=== PATIENT | male | born 1945 | race Caucasian/White ===

== ENCOUNTER 2017-05-19 09:27 | Observation (INO) | payer OTHER ==
[~2017-05-19] VITALS: Ht 152.4 cm; Wt 49.8 kg
[~2017-05-19 09:27] MED LIST: AMIO200T2 PO; ASPI-1197 PO; ISOS30TA11 PO; METO50TA18 PO; ROSU40TA28 PO; TRAZ-144 PO
[2017-05-19] MEDS ORDERED: ASPIRIN 325 MG TABLET ONE (09:47)
[2017-05-19] MEDS ORDERED: ONDANSETRON HCL 4 MG/2 ML VIAL ONE (09:47)
[2017-05-19] MEDS ORDERED: MORPHINE SULFATE 2 MG/ML 1ML SYG ONE (09:48)
[2017-05-19] MEDS ORDERED: NITROGLYCERIN 1GM/1 INCH PACKET TD ONE (09:48)
[2017-05-19 09:55] LABS: BASOPHILS % (AUTO) 1.2 % (0.0-5.0); EOSINOPHILS % (AUTO) 5.2 % (0.0-8.0); HEMATOCRIT 43.9 % (42-54); LYMPHOCYTES % (AUTO) 22.1 % (21.0-51.0); MEAN CORPUSCULAR HEMOGLOBIN 31.4 pg (27.0-33.0); MEAN CORPUSCULAR HGB CONC 34.6 g/dL (32.0-36.0); MEAN CORPUSCULAR VOLUME 90.6 fL (79-99); MONOCYTES % (AUTO) 10.6 % (3.0-13.0); NEUTROPHILS % (AUTO) 60.9 % (40.0-77.0); NUCLEATED RED BLOOD CELLS 0.1 % (0.0-0.19); PLATELET COUNT (AUTO) 176 K/uL (130-400); RED BLOOD CELL COUNT(AUTO) 4.85 MIL/uL (4.50-6.20); RED CELL DISTRIBUTION WIDTH 15.8 % (11.0-15.5); WHITE BLOOD COUNT (AUTO) 6.8 K/uL (4.8-10.8)
[2017-05-19 10:07] LABS: CARBON DIOXIDE 29 mmol/L (21-32); CHLORIDE 104 mmol/L (101-111); CREATININE 1.2 mg/dL (0.5-1.5); GLOMERULAR FILTR. RATE CALC 63 mL/min (>60); GLUCOSE,RANDOM 98 mg/dL (70-105); POTASSIUM 4.3 mmol/L (3.5-5.1); SODIUM SERUM 138 mmol/L (136-145); UREA NITROGEN, BLOOD 13 mg/dL (7-18)
[2017-05-19 10:23] LABS: ALANINE AMINOTRANSFERASE 68 U/L (12-78); ASPARTATE AMINOTRANSFERASE 33 U/L (10-37); BILIRUBIN,TOTAL 0.6 mg/dL (0.2-1.0); CREATINE KINASE MB < 0.5 ng/mL (0.5-3.6); CREATINE KINASE, TOTAL 69 U/L (21-232)
[2017-05-19] MEDS ORDERED: LIDOCAINE HCL-MPF 1% 2ML VIAL IVP PRN (12:00)
[2017-05-19] MEDS ORDERED: POTASSIUM CHLORIDE 20 MEQ ERTAB PO PRN (12:00)
[2017-05-19] MEDS: NITROGLYCERIN 1GM/1 INCH PACKET TD SCH ×3 (12:00→19:56)
[2017-05-19] MEDS ORDERED: MORPHINE SULFATE 4 MG/1ML SYG IV PRN (12:00)
[2017-05-19] MEDS ORDERED: ACETAMINOPHEN 325 MG TAB PO PRN ×2 (12:00)
[2017-05-19] MEDS ORDERED: POTASSIUM CHLORIDE 10% ELIXIR 20 MEQ/15 ML UDCUP PO PRN (12:00)
[2017-05-19] MEDS ORDERED: NITROGLYCERIN 0.4 MG SL TAB SL PRN (12:00)
[2017-05-19] MEDS ORDERED: POTASSIUM CHLORIDE 20MEQ/100ML 100 ML IV PRN (12:00)
[2017-05-19] MEDS ORDERED: MAG HYDROX/AL HYDROX/SIMETH ES 30 ML SUSP UDCUP PO PRN (12:00)
[2017-05-19] MEDS ORDERED: MORPHINE SULFATE 2 MG/ML 1ML SYG IV PRN (12:00)
[2017-05-19] MEDS ORDERED: ONDANSETRON HCL 4 MG/2 ML VIAL IV PRN (12:00)
[2017-05-19] MEDS ORDERED: LACTULOSE 20 GM/30 ML UDCUP PO PRN (12:00)
[2017-05-19] MEDS ORDERED: GUAIFENESIN-DM 200/20 MG 10 ML PO PRN (12:00)
[2017-05-19] MEDS ORDERED: HYDRALAZINE HCL 20 MG/ML VIAL IV PRN (12:00)
[2017-05-19] MEDS ORDERED: ACETAMINOPHEN-CODEINE 300/30MG TAB PO PRN ×2 (12:00)
[2017-05-19 12:53] VITALS: BP 112/55
[2017-05-19] MEDS ORDERED: PROP50TA3 PO ×2 (14:36)
[2017-05-19 16:10] LABS: CREATINE KINASE MB < 0.5 ng/mL (0.5-3.6); CREATINE KINASE, TOTAL 58 U/L (21-232); MYOGLOBIN 33 ng/mL (10-92); TROPONIN I < 0.04 ng/mL (0.00-0.06)
[2017-05-19 16:21] VITALS: BP 101/61
[2017-05-19 19:31] VITALS: BP 108/65
[2017-05-19 20:30] VITALS: BP 110/63
[2017-05-19] MEDS: METOPROLOL TARTRATE 25 MG TAB PO SCH (20:35)
[2017-05-19 23:17] VITALS: BP 116/65
[2017-05-19 23:41] LABS: CREATINE KINASE MB < 0.5 ng/mL (0.5-3.6); CREATINE KINASE, TOTAL 54 U/L (21-232); MYOGLOBIN 33 ng/mL (10-92); THYROID STIMULATING HORMONE 24.53 uIU/mL (0.36-3.74); TROPONIN I < 0.04 ng/mL (0.00-0.06)
[2017-05-20] MEDS: NITROGLYCERIN 1GM/1 INCH PACKET TD SCH ×2 (03:41→12:02)
[2017-05-20 04:05] VITALS: BP 100/57
[2017-05-20] MEDS ORDERED: PROPYLTHIOURACIL 50 MG TABLET PO SCH ×2 (07:30→21:00)
[2017-05-20 08:04] VITALS: BP 102/65
[2017-05-20] MEDS: METOPROLOL TARTRATE 25 MG TAB PO SCH (08:48)
[2017-05-20] MEDS ORDERED: ENOXAPARIN SODIUM 40 MG/0.4 ML SYRINGE SQ SCH (09:00)
[2017-05-20] MEDS ORDERED: FAMOTIDINE/PF 20 MG/2 ML VIAL IV SCH (09:00)
[2017-05-20] MEDS ORDERED: ASPIRIN 325 MG TABLET PO SCH (09:00)
[2017-05-20 11:14] VITALS: BP 107/67
[2017-05-20 16:13] VITALS: BP 107/67
[2017-05-20 17:15] VITALS: BP 117/63
[2017-05-20] MEDS ORDERED: ISOSORBIDE DINITRATE 10 MG TABLET PO SCH (21:00)
[2017-05-20] MEDS ORDERED: ASPIRIN 81MG TAB.CHEW PO SCH (21:00)
[2017-05-20] MEDS ORDERED: ATORVASTATIN CALCIUM 40 MG TABLET PO SCH (21:00)
[2017-05-20] MEDS ORDERED: AMIODARONE HCL 200 MG TABLET PO SCH (21:00)
[2017-05-20] MEDS ORDERED: TRAZODONE HCL 50 MG TAB PO SCH (21:00)
== END 2017-05-20 18:25 | disposition home or self-care (01) ==
LOC: EDH 09:27 → EDHIP 11:53 → 2AH 12:22
PROVIDERS: ADMIT Internal Medicine; ATTEND Internal Medicine
DX: R07.89 Other chest pain (principal); I25.10 Atherosclerotic heart disease of native coronary artery without angina pectoris; I47.2 Ventricular tachycardia; I42.9 Cardiomyopathy, unspecified; I10 Essential (primary) hypertension; E05.90 Thyrotoxicosis, unspecified without thyrotoxic crisis or storm; E78.5 Hyperlipidemia, unspecified; I25.2 Old myocardial infarction; Z82.49 Family history of ischemic heart disease and other diseases of the circulatory system; Z95.1 Presence of aortocoronary bypass graft; Z95.5 Presence of coronary angioplasty implant and graft; Z95.810 Presence of automatic (implantable) cardiac defibrillator
CPT/HCPCS: 36415; 71045; 78452; 80053; 82550 ×3; 82553 ×3; 83874 ×2; 84443; 84484 ×3; 85025; 93005 ×2; 93017; 93306; 96372; 99285; A9500 ×2; G0378 ×31; J1650; J2405; J3490; 96374

== ENCOUNTER 2017-09-13 02:00 | Emergency (ER) | payer OTHER ==
[~2017-09-13 02:00] MED LIST changes: -AMIO200T2 PO; +AMIO200T5 PO; +PROP50TA3 PO; +ROSU40TA20 PO; -ROSU40TA28 PO; -TRAZ-144 PO; +TRAZ-185 PO
[2017-09-13 02:54] LABS: BASOPHILS % (AUTO) 0.7 % (0.0-5.0); EOSINOPHILS % (AUTO) 3.2 % (0.0-8.0); HEMATOCRIT 40.6 % (42-54); LYMPHOCYTES % (AUTO) 12.4 % (21.0-51.0); MEAN CORPUSCULAR HEMOGLOBIN 32.6 pg (27.0-33.0); MEAN CORPUSCULAR HGB CONC 35.5 g/dL (32.0-36.0); MEAN CORPUSCULAR VOLUME 91.8 fL (79-99); NEUTROPHILS % (AUTO) 68.7 % (40.0-77.0); PLATELET COUNT (AUTO) 152 K/uL (130-400); RED BLOOD CELL COUNT(AUTO) 4.42 MIL/uL (4.50-6.20); RED CELL DISTRIBUTION WIDTH 12.2 % (11.0-15.5); WHITE BLOOD COUNT (AUTO) 8.5 K/uL (4.8-10.8)
[2017-09-13] MEDS ORDERED: ASPIRIN 325 MG TABLET ONE (03:15)
[2017-09-13] MEDS ORDERED: ONDANSETRON HCL MDV 20ML 2 MG/ML VIAL ONE (03:16)
[2017-09-13] MEDS ORDERED: MORPHINE SULFATE 8 MG/ML VIAL ONE (03:17)
[2017-09-13 03:24] LABS: CARBON DIOXIDE 26 mmol/L (21-32); CHLORIDE 107 mmol/L (101-111); GLOMERULAR FILTR. RATE CALC 78 mL/min (>60); GLUCOSE,RANDOM 119 mg/dL (70-105); POTASSIUM 4.1 mmol/L (3.5-5.1); SODIUM SERUM 141 mmol/L (136-145); UREA NITROGEN, BLOOD 16 mg/dL (7-18)
[2017-09-13 03:31] LABS: INR 0.92 (0.85-1.15); PARTIAL THROMBOPLASTIN TIME 28.1 SEC (26.3-35.5); PROTHROMBIN TIME 9.7 SEC (9.6-11.6)
[2017-09-13 03:38] LABS: ALANINE AMINOTRANSFERASE 33 U/L (12-78); ALBUMIN 3.4 g/dL (3.5-5.0); ASPARTATE AMINOTRANSFERASE 24 U/L (10-37); BILIRUBIN,TOTAL 0.5 mg/dL (0.2-1.0); CREATINE KINASE MB < 0.5 ng/mL (0.5-3.6); CREATINE KINASE, TOTAL 67 U/L (21-232); MYOGLOBIN 21 ng/mL (10-92); TOTAL PROTEIN, SERUM 6.4 g/dL (6.0-8.3)
[2017-09-13] MEDS ORDERED: IOPAMIDOL-370 75 ML VIAL IV ONE (03:59)
== END 2017-09-13 08:20 | disposition home or self-care (01) ==
LOC: EDH 02:00
DX: R68.84 Jaw pain (principal); R51 Headache; I25.10 Atherosclerotic heart disease of native coronary artery without angina pectoris; E78.5 Hyperlipidemia, unspecified; Z95.1 Presence of aortocoronary bypass graft
CPT/HCPCS: 36415; 70450; 70496; 70498; 71045; 80053; 82550; 82553; 83874; 84484 ×2; 85025; 85610; 85730; 93005 ×2; 94761; 96374; 96375; 99285; J2270; Q9967

== ENCOUNTER 2018-05-18 11:47 | Emergency (ER) | payer OTHER ==
[2018-05-18] MEDS ORDERED: DEXAMETHASONE SOD PHOSPHATE 10MG/ML 1ML VIAL ONE (12:11)
[2018-05-18] MEDS ORDERED: IPRATROPIUM/ALBUTEROL SULFATE 3 ML SOLUTION IH ONE (12:19)
[2018-05-18] MEDS ORDERED: BENZONATATE 100 MG CAPSULE PO ONE (13:03)
== END 2018-05-18 13:15 | disposition home or self-care (01) ==
LOC: EDH 11:47
DX: J20.9 Acute bronchitis, unspecified (principal); I25.10 Atherosclerotic heart disease of native coronary artery without angina pectoris; E78.5 Hyperlipidemia, unspecified; Z95.1 Presence of aortocoronary bypass graft; Z88.8 Allergy status to other drugs, medicaments and biological substances; Z87.891 Personal history of nicotine dependence
CPT/HCPCS: 71045; 94640; 96372; 99283; J1100

== ENCOUNTER 2018-05-28 11:23 | Emergency (ER) | payer OTHER ==
[2018-05-28 12:13] LABS: BASOPHILS % (AUTO) 0.6 % (0.0-5.0); EOSINOPHILS % (AUTO) 5.1 % (0.0-8.0); HEMATOCRIT 43.5 % (42-54); LYMPHOCYTES % (AUTO) 11.5 % (21.0-51.0); MEAN CORPUSCULAR HEMOGLOBIN 30.9 pg (27.0-33.0); MEAN CORPUSCULAR HGB CONC 33.8 g/dL (32.0-36.0); MEAN CORPUSCULAR VOLUME 91.2 fL (79-99); MONOCYTES % (AUTO) 12.9 % (3.0-13.0); NEUTROPHILS % (AUTO) 69.9 % (40.0-77.0); NUCLEATED RED BLOOD CELLS 0.1 % (0.0-0.19); PLATELET COUNT (AUTO) 161 K/uL (130-400); RED BLOOD CELL COUNT(AUTO) 4.77 MIL/uL (4.50-6.20); RED CELL DISTRIBUTION WIDTH 13.1 % (11.0-15.5); WHITE BLOOD COUNT (AUTO) 7.1 K/uL (4.8-10.8)
[2018-05-28 12:21] LABS: CREATININE 1.1 mg/dL (0.5-1.5); POTASSIUM 3.9 mmol/L (3.5-5.1)
[2018-05-28 12:24] LABS: INR 0.95 (0.85-1.15); PARTIAL THROMBOPLASTIN TIME 28.1 SEC (26.3-35.5)
[2018-05-28 12:26] LABS: ALBUMIN 2.9 g/dL (3.5-5.0); BILIRUBIN,TOTAL 0.7 mg/dL (0.2-1.0); TOTAL PROTEIN, SERUM 6.2 g/dL (6.0-8.3)
[2018-05-28] MEDS ORDERED: SODIUM CHLORIDE 0.9% 1000ML 1,000 ML IV ONE (13:49)
[2018-05-28] MEDS ORDERED: DEXAMETHASONE SOD PHOSPHATE 10MG/ML 1ML VIAL ONE (14:16)
[2018-05-28] MEDS ORDERED: IPRATROPIUM/ALBUTEROL SULFATE 3 ML SOLUTION IH ONE (14:28)
== END 2018-05-28 16:03 | disposition home or self-care (01) ==
LOC: EDH 11:23
DX: G93.3 Postviral and related fatigue syndromes (principal); R05 Cough; E78.5 Hyperlipidemia, unspecified; I25.810 Atherosclerosis of coronary artery bypass graft(s) without angina pectoris; Z88.8 Allergy status to other drugs, medicaments and biological substances
CPT/HCPCS: 36415; 71045; 80053; 82550; 83880; 84443; 84484; 85025; 85610; 85730; 87804 ×2; 93005; 94640; 96374; 99284; J1100; J7030

== ENCOUNTER → 2024-05-22 | Outpatient (CLI) | payer OTHER ==
[~2024-05-22] MED LIST changes: -AMIO200T5 PO; +AMIO200T68 PO; -ROSU40TA20 PO; +ROSU40TA88 PO
--- NOTE | 2024-05-24 07:57 | HMCSR ---
APPROVED REPORT EXAM: Two-dimensional and M-mode echocardiogram with Doppler and color Doppler. INDICATION ICD: R06.09 Other forms of dyspnea 2D Dimensions RVDd4.3 cmLVEF(%)33.8 (>50%)LVED Vol(simp.)168.0 mL IVSd0.9 (0.7-1.1cm)FS(%)16 %LVES Vol(simp.)67.0 mL LVDd5.5 (3.8-5.6cm)LA (2D)5.1 (1.6-4.0cm)LVEF(%, simp.)60 % PWd0.8 (0.7-1.1cm)Ao Root(2D)3.2 (2.0-3.7cm)LA ESV INDEX (4CH)44.20 mL/m2 IVSs1.3 cmLVOT diam2.0 (1.8-2.4cm)LA ESV INDEX (2CH)55.30 mL/m2 LVDs4.6 (2.5-4.0cm)LA ESV INDEX (BP)50.30 mL/m2 PWs0.9 cm M-Mode Dimensions LA (MM)6.2 (1.6-4.0cm) Ao Root(MM)3.5 (2.0-3.7cm) Aortic Valve AoV VTI0.5 mAo Mean GR11.0 mmHgLVOT VTI0.19 m TRICIA (VMAX)1.2 cm2AVA (VTI) 1.2 cm2 Mitral Valve MV E Fsud035.2 cm/sDECEL Dbsa594 ms MV A Qxpb675.5 cm/sP 1/2 T130 ms E/A ratio0.9MVA (PHT)1.7 cm2 TDI E/E' Rgpele59.8E/E' Ksaihtv84.8 Medial E' Peak V5.70 cm/sLateral E' Peak V6.60 cm/s Pulmonary Valve PV VTI0.21 mPV Mean GR2 mmHg Tricuspid Valve TR Vmax2.3 m/s TR Peak GR22.1 mmHg Left Ventricle The left ventricle structure and function is normal. Severe inferior and posterior wall hypokinesis T here is normal left ventricular wall thickness. LVEF is 40-45%. Stage II diastolic dysfunction. Right Ventricle The right ventricle is mildly dilated. Right ventricular systolic function is mildly reduced. Atria The left atrium is moderately dilated. The right atrium size is normal. Aortic Valve The aortic valve is normal in structure and function. No aortic regurgitation is present. There is no aortic valvular stenosis. Mitral Valve Mitral valve leaflets appear normal. There is no mitral valve regurgitation noted. There is no mitral valve stenosis. Tricuspid Valve The tricuspid valve is normal in structure and function. There is mild tricuspid valve regurgitation noted. Pulmonic Valve The pulmonary valve is normal in structure and function. There is no pulmonic valvular regurgitation. Great Vessels The aortic root is normal in size. IVC is normal in size and collapses <50% with inspiration. Pericardium No pericardial effusion. Conclusion LVEF is 40-45%. Stage II diastolic dysfunction. Severe inferior and posterior wall hypokinesis The right ventricle is mildly dilated. Right ventricular systolic function is mildly reduced. The left atrium is moderately dilated.
== END | disposition home or self-care (01) ==
LOC: SHCH 08:38
PROVIDERS: ATTEND Internal Medicine Cardiovascular Disease
DX: I36.1 Nonrheumatic tricuspid (valve) insufficiency (principal); I48.0 Paroxysmal atrial fibrillation; R06.09 Other forms of dyspnea; R07.9 Chest pain, unspecified; I47.29 Other ventricular tachycardia
CPT/HCPCS: 93306

== ENCOUNTER → 2024-06-03 | Outpatient (CLI) | payer OTHER ==
--- NOTE | 2024-06-04 10:08 | HMCIMG ---
Exam Type: NM BONE SCAN WHOLE BODY Clinical Information: T1 BONE LESION Comparison: None RADIOPHARMACEUTICAL: Intravenous administration of 24 mCi of Tc-99m MDP . TECHNIQUE: Three-hour delayed anterior and posterior whole-body and upper extremities and lateral views of the skull and posterior obliques of the thorax were obtained. The distal humeri, the elbows, and the proximal and mid forearms are incompletely included in the films. FINDINGS: Discrete foci of increased uptake in several spots of the cervical spine as well as several costovertebral junction regions on the right side, several joints of the hands, as well as the left knee lateral aspect seen, and the distribution of all of these is suggestive of degenerative changes. No obvious metastatic lesions are seen. Biodistribution in soft tissues and kidneys is unremarkable. IMPRESSION: No evidence of metastatic disease.
== END | disposition home or self-care (01) ==
LOC: RAH 12:29
PROVIDERS: ATTEND Internal Medicine
DX: M89.9 Disorder of bone, unspecified (principal)
CPT/HCPCS: 78306; A9503

== ENCOUNTER 2024-09-17 05:53 | Observation (INO) | payer MEDICARE, OTHER ==
[2024-09-08 09:58] LABS: BASOPHILS # (AUTO) 0.05 K/uL (0.00-0.20); BASOPHILS % (AUTO) 0.7 % (0.0-5.0); EOSINOPHILS # (AUTO) 0.28 K/uL (0.00-0.70); IMMATURE GRANULOCYTE ABSOLUTE 0.02 K/uL (0-1); LYMPHOCYTES # (AUTO) 1.4 K/uL (1.0-4.8); LYMPHOCYTES % (AUTO) 19.7 % (21.0-51.0); MEAN CORPUSCULAR HEMOGLOBIN 28.5 pg (27.0-33.0); MEAN CORPUSCULAR HGB CONC 32.2 g/dL (32.0-36.0); MEAN CORPUSCULAR VOLUME 88.5 fL (79-99); MONOCYTES # (AUTO) 0.9 K/uL (0.1-1.0); MONOCYTES % (AUTO) 12.4 % (3.0-13.0); NEUTROPHILS # (AUTO) 4.4 K/uL (1.8-7.7); NEUTROPHILS % (AUTO) 62.9 % (40.0-77.0); PLATELET COUNT (AUTO) 164 K/uL (130-400); RED BLOOD CELL COUNT(AUTO) 4.18 MIL/uL (4.50-6.20); RED CELL DISTRIBUTION WIDTH 14.7 % (11.0-15.5); WHITE BLOOD COUNT (AUTO) 6.9 K/uL (4.8-10.8)
[2024-09-08 10:06] LABS: CREATININE 1.5 mg/dL (0.5-1.3)
[2024-09-08 10:08] LABS: INR 1.03 (0.85-1.15); PROTHROMBIN TIME 10.9 SEC (9.6-11.6)
[2024-09-08 10:10] LABS: PARTIAL THROMBOPLASTIN TIME 31.9 SEC (26.3-35.5)
[2024-09-08 10:18] LABS: B-TYPE NATRIURETIC PEPTIDE 91 pg/mL (0-100)
[2024-09-08 10:20] VITALS: BP 103/58; PULSE 66; RESP 18; TEMP 97.5
--- NOTE | 2024-09-08 10:50 | HMCIMG ---
Exam Type: CHEST 1VW Clinical Information: PRE OP Comparison: None Findings: Left cardiac pacemaker is noted with leads in place. There is status post median sternotomy. The lungs are clear of infiltrates. The heart is normal in size. Impression: Clear lungs.
--- NOTE | 2024-09-08 11:05 | EKG ---
[facility] Test Date: 2024-09-08 Test Time: 09:48:51 Pat Name: REGIGE BOGGS Department: [facility] Room: Gender: M Material Checker: [id number] : 1945 Requested By: LOGAN HARKINS Order Number: [id number] Reading MD: Paul Dubose Measurements Intervals [place] Rate: 60 P: -71 DE: 144 QRS: 68 QRSD: 116 T: -21 QT: 426 QTc: 426 Interpretive Statements ectopic atrial rhythm Nonspecific intraventricular conduction delay Inferior infarct, age indeterminate Compared to ECG 05/28/2018 11:44:19 Ectopic atrial rhythm now present Intraventricular conduction delay now present Atrial-paced complex(es) or rhythm no longer present Myocardial infarct finding still present Electronically Signed On 09-08-2024 18:58:53 CDT by Paul Dubose Please click the below link to view image of tracing.
--- NOTE | 2024-09-09 08:42 | NUR ---
REPORT REPORTED CREAT LEVEL TO JOSÉ MIGUEL POTTS. OK TO PROCEED
[~2024-09-17] VITALS: Ht 180.3 cm; Wt 80.9 kg
[2024-09-17] VITALS (16 sets, daily range): BP systolic 83–123; BP diastolic 49–66; PULSE 60–92; RESP 12–18; TEMP 97.2–98.2; O2SAT 95–97
[~2024-09-17 05:53] MED LIST changes: -AMIO200T68 PO; +APIX5TAB PO; +B12 PO; +DOCUSATE PO; +HYDROCORTISONE PO; -METO50TA18 PO; +METOPROLOL TART PO; -PROP50TA3 PO; +SACU1TAB PO
[2024-09-17] MEDS: 0.9%NACL 1000ML 1,000 ML IV SCH ×2 (06:20→18:33)
[2024-09-17] MEDS ORDERED: LIDOCAINE HCL 400MG/20ML VIAL ONE (07:08)
[2024-09-17] MEDS ORDERED: NITROGLYCERIN 50MG VIAL ONE (07:09)
[2024-09-17] MEDS ORDERED: IOHEXOL-350 50ML VIAL IV ONE (07:09)
[2024-09-17] MEDS ORDERED: IOHEXOL 350 MG/ML 100ML INFUS..BTL IV ONE ×2 (07:09→08:36)
[2024-09-17] MEDS ORDERED: HEParin 10,000 UNIT/10ML (1,000 UNIT/ML) VIAL ONE (07:09)
[2024-09-17] MEDS ORDERED: HEParin-NS 1,000 UNIT/500 ML 1,000 ML IV ONE (07:09)
[2024-09-17] MEDS ORDERED: niCARDIpine 25MG INJ IV ONE (07:13)
[2024-09-17] MEDS ORDERED: MIDAZOLAM HCL 1 MG/ML 2ML VIAL ONE (07:24)
[2024-09-17] MEDS ORDERED: FENTanyl CITRate PF 50 MCG/1 ML 2ML VIAL ONE (07:24)
[2024-09-17] MEDS ORDERED: BIVALIRUDIN 250 MG/VIAL IV ONE (07:41)
[2024-09-17] MEDS ORDERED: morPHINE 4 MG SYG ONE (08:32)
[2024-09-17] MEDS ORDERED: DOPamine HCL 400 MG/D5%-WATER 250 ML IV ONE (08:32)
[2024-09-17] MEDS ORDERED: cloPIDOgrel 300MG TAB ONE (09:01)
[2024-09-17] MEDS ORDERED: DEXTROSE 50%-WATER 50 ML DISP.SYRIN IV PRN (09:30)
[2024-09-17] MEDS ORDERED: NITROGLYCERIN 0.4 MG SL TAB SL PRN (09:30)
[2024-09-17] MEDS ORDERED: GLUCAGON 1MG KIT 1 MG ML IM PRN (09:30)
--- NOTE | 2024-09-17 09:32 | PRN ---
PROCEDURES: 1. Right radial arterial sheath placement 6 Chinese. 2. Selective coronary angiogram. 3. Selective right internal mammary arteriogram 4. Conscious sedation 5. Lithotripsy angioplasty to mid left anterior descending artery with the use of a 3 mm x 12 mm lithotripsy balloon 6. Angioplasty and stent placement to proximal to mid LAD with the use of a 3 mm x 34 mm resolute erick stent deployed to 3.10 mm INDICATION: Unstable angina DESCRIPTION OF PROCEDURE: The patient was brought to the catheterization suite and prepped and draped in sterile fashion. IV was started, and not already in place and both groins were exposed for arterial access. Right radial artery was also exposed for access. Ultrasound was used to isolate radial artery and then 1% lidocaine was used for local anesthesia and then a micropuncture kit was used to gain access once free-flowing blood was seen, modified Seldinger technique was utilized to place a 6 Chinese sheath into the right radial artery. Next, preformed a TIG catheters were used to selectively engage the hughes LEFT CORONARY ARTERY and multiple hand contrast injections were performed in different views to define the coronary anatomy. THE RIGHT CORONARY ARTERY WAS KNOWN TO BE OCCLUDED FROM PRIOR STUDIES. FINDINGS: The left main artery bifurcates into the LAD and left circumflex and is free of any significant stenosis. The left anterior descending artery gives rise to a septal clinical unit coordinator 1 and a diagonal branch vessel that is in its mid section. At diagonal branch vessel there is a 80-90% stenosis noted in the calcified LAD. The remaining LAD is tortuous free of stenosis. Diagonal branch system is free of any significant stenosis. The left circumflex artery is a nondominant system giving rise to a small obtuse marginal branch 1. Followed by large obtuse marginal branch 2 and 3 which bifurcate distally. The right coronary artery was not engaged in his known to be occluded in its proximal mid section Could not isolate her locate graft presumably that went to RCA INTERVENTIONAL REPORT: After diagnostic angiography was performed it was felt intervention should be done to mid LAD and therefore the short 6 Chinese sheath was replaced with a 75 cm are 2p6 Chinese sheath which was parked into the aorta. Initially a Q3.5 guide catheter was attempted to gain access into the left main artery and engaged it but was unsuccessful and I then went in with a JL 3.56 Chinese guide catheter and then a choice PT extra-support 0.014 in wire was then placed in the distal ongoing LAD under fluoroscopic guidance. Next a GuideLiner was used for support to get the 3 mm x 12 mm lithotripsy balloon into the mid LAD and a total of 3 treatments were done at [address] STs suggested significant obstruction of flow and possible dissection and as we are pulling the lithotripsy balloon out secondary to significant tortuosity from radial artery access the choice PT extra-support wire was brought back to the guide. Contrast injection still revealed adequate flow and we then got a 2nd choice PT extra- support wire and I was able to place that in the distal apical LAD under fluoroscopic guidance. Next a 3 mm x 20 mm semi compliant balloon was then used to dilate that region of the proximal mid LAD. Next a 3 mm x 34 mm resolute on yx stent was then placed in the proximal to mid LAD and deployed to 3.10 mm. Follow up contrast injection revealed no evidence of dissection or perforation with DILEEP 3 flow noted. There was no interruption of flow to diagonal branch vessel or septal clinical unit coordinator. At end of case a TR band was used for hemostasis as sheath was pulled. RECOMMENDATIONS: IV fluids overnight Initiate dual antiplatelet therapy concomitantly with anticoagulation for triple therapy for 30 days with a then discontinuation of aspirin and continue with clopidogrel and Eliquis thereafter Place on telemetry overnight Initiate anticoagulation with Eliquis LOGAN Broussard MD September 17, 2024 09:32
--- NOTE | 2024-09-17 10:53 | HP ---
[facility] HISTORY [facility] PHYSICAL Date of Service: September 17, 2024 Time of Service: 10:43 HISTORY OF PRESENT ILLNESS: 79-year-old male with past medical history of hypertension, hyperlipidemia, history of CHF, CAD status post CABG who presented to the hospital secondary to unstable angina. Patient was evaluated by Cardiology as outpatient and was recommended cardiac catheterization. Patient presented to the hospital for elective heart catheterization. Patient underwent left heart catheterization by Dr. Rhodes. He underwent lithotripsy angioplasty to mid left anterior descending artery with balloon, angioplasty and stent placement to mid LAD. Patient has history of CKD and was recommended to be monitored overnight in the hospital and was recommended to be admitted. Patient was seen postprocedure any chest pain, shortness of breath, abdominal pain, nausea, vomiting, fever, chills. Patient's family is present bedside Patient's chest x-ray is clear. Patient has a pacemaker present. REVIEW OF SYSTEMS CONSTITUTIONAL: Denies fevers, chills, or night sweats. No unintentional weight loss reported. NEUROLOGICAL: Denies headache, amaurosis fugax, motor weakness, sensory deficit, vertigo/spinning sensation, gait abnormalities, or tremors. ENT: No hearing loss, otalgia, otorrhea, rhinitis, rhinorrhea, hoarseness, or sore throat. CARDIOVASCULAR: Denies any exertional angina, dyspnea on exertion, orthopnea, paroxysmal nocturnal dyspnea, palpitations, life-threatening arrhythmias, claudication. PULMONARY: Denies any shortness of breath, cough, phlegm/sputum, hemoptysis, pleuritic chest pain. GASTROINTESTINAL: Denies any type of dysphagia to either liquids or solids. Denies nausea, vomiting, pyrosis, early satiety, abdominal pain, diarrhea, constipation, or changes in stool consistency or caliber. Denies coffee-ground emesis, hematemesis, hematochezia, or melanotic stools. GENITOURINARY: Denies frequency, urgency, nocturia, hematuria or incontinence (Storage/Irritative symptoms.) Low urinary stream, straining to void, urinary intermittency or hesitancy, splitting of the voiding stream, terminal dribbling. ENDOCRINOLOGIC: Denies polyuria, polydipsia, polyphagia or heat/cold intoler ances. HEMATOLOGIC: Denies thrombophilia/previous clots, or coagulopathy/bleeding disorders. ONCOLOGIC: Denies personal history of malignancy. DERMATOLOGIC: Denies rashes or pruritus. PSYCHIATRIC: Denies any suicidal or homicidal ideation. Denies hallucinations. PAST MEDICAL HISTORY: Hypertension, hyperlipidemia CHF, history of CAD status post CAB PAST SURGICAL HISTORY: History of CABG, history of pacemaker placement, history of heart catheterization PAST SOCIAL HISTORY: Denied any smoking, alcohol, drug use FAMILY HISTORY: Denied any pertinent family history Coded Allergies: amiodarone (Unverified Allergy, Intermediate, Rash swelling, 09/17/24) levothyroxine (Unverified Allergy, Intermediate, rash, 09/17/24) No Allergy Information Available (Verified Allergy, Unknown, 10/17/16) PHYSICAL EXAM GENERAL APPEARANCE: The patient is awake, alert, and oriented, in no acute cardiopulmonary distress. NEUROLOGICAL: Cranial nerves II-XII grossly intact. Motor is 5/5 in bilateral upper and lower extremities proximal to distal. No sensory deficits. HEENT: Face is symmetric. Pupils are equal and reactive. Extraocular movements are intact. NECK: Supple. No JVD. No thyromegaly. No submental, submandibular, pre-/postauricular, occipital or supraclavicular lymphadenopathy. CHEST: Normal chest expansion. No Telemetry. LUNGS: Absence of any rales, rhonchi or any wheezing. CARDIOVASCULAR: Regular. S1 and S2 normal. No appreciable rubs, murmurs or gallops. ABDOMEN: Soft, nontender, and nondistended. There is no rebound, voluntary guarding, or rigidity. : Deferred. No Cooper. EXTREMITIES: Non-edematous and not cyanotic. No clubbing. Good capillary refill. SKIN: No skin breakdown. Vital Sign (Last 24 Hours) 09/17/24 09/17/24 07:00 10:26 Temp 97.7 Pulse 60 Resp 18 B/P (MAP) 99/66 Pulse Ox 95 O2 Delivery Room Air FiO2 21 LABS: Current Medications Medications (Trade) Dose Ordered Sig/Jolynn Route PRN Reason Start Time Stop Time Status Last Admin Dose Admin Apixaban (EliquIS) 5 mg BID PO 09/17/24 21:00 10/17/24 20:59 Aspirin (Aspirin 81mg Chew Tab) 81 mg HS PO 09/17/24 21:00 10/17/24 20:59 Atorvastatin Calcium (LIPItor 40MG) 80 mg HS PO 09/17/24 21:00 10/17/24 20:59 Clopidogrel Bisulfate (plaVIX 75MG) 75 mg DAILY PO 09/18/24 09:00 10/18/24 08:59 Dextrose (D50w) 50 ml AD PRN IV HYPOGLYCEMIA PROTOCOL 09/17/24 09:30 10/17/24 09:29 Docusate Sodium (COLace 100MG CAP) 100 mg HS PO 09/17/24 21:00 10/17/24 20:59 Glucagon (Glucagon 1mg Kit) 1 mg AD PRN IM HYPOGLYCEMIA PROTOCOL 09/17/24 09:30 10/17/24 09:29 Isosorbide Dinitrate (isorDIL 10MG) 30 mg HS PO 09/17/24 21:00 10/17/24 20:59 Metoprolol Tartrate (loprESSOR) 12.5 mg HS PO 09/17/24 21:00 10/17/24 20:59 Nitroglycerin (Nitrostat) 0.4 mg AD PRN SL CHEST PAIN 09/17/24 09:30 10/17/24 09:29 Sacubitril/ Valsartan (Entresto 24 Mg-26 Mg Tablet) 1 each BID PO 09/17/24 21:00 10/17/24 20:59 Sodium Chloride 1,000 ml @ 0 mls/hr Q0M IV 09/17/24 06:30 10/17/24 06:29 09/17/24 06:20 20 MLS/HR Sodium Chloride 1,000 ml @ 75 mls/hr [id number] IV 09/17/24 09:30 09/17/24 15:29 Trazodone HCl (DesyREL/OlepTRO) 50 mg HS PO 09/17/24 21:00 10/17/24 20:59 DIAGNOSTICS / RADIOLOGY: [ ] ASSESSMENT: Unstable angina status post left heart catheterization with angioplasty to mid anterior descending artery, stent placement to proximal to mid LAD CAD status post CABG Hypertension Hyperlipidemia CKD stage 3 CHF History of chronic anticoagulation with Eliquis History of pacemaker placement PLAN: - patient to be admitted to medical-surgical unit with telemetry -reference to unstable angina with stent placement of mid LAD. Patient will be monitored on telemetry. Patient will continue on aspirin, Plavix. Per Cardiology recommendation patient will be started on Eliquis overnight. Per Cardiology recommendations patient will be on triple therapy for 30 days and then aspirin will be discontinued and patient will continue on Plavix and Eliquis thereafter. -patient's home medications will be reconciled -repeat CBC, BMP for tomorrow -Further orders per hospitalization Advanced Care Planning Which of the following were discussed: Hospice care: Yes __ No _x_ Therapeutic options: Yes __ No __ Advance directives: Yes __ No __ Other discussions: Discussed with who?: patient (Patient, family or surrogates) Voluntary nature of this service was explained to the patient? Yes _x_ No __ Amount of time spent: 20 minutes GEOVANNA Rasmussen MD, MD September 17, 2024 10:53
--- NOTE | 2024-09-17 12:25 | NUR ---
Patient has remained stable without complaint of chest pain or pressure. VS wnl. Ate 100% of Lunch and adequate fluids. Voided 200 to urinal. TR band removed per protocol at 11:25 am. Cleansed area with Chloroprep covered by Tegaderm and Coban. Patient voiced understanding to leave right arm up on pillow support. He agreed not to bend or flex wrist. at bedside most of morning appearing attentive and supportive. Pending PCCU bed. Spoke to Lynnette YEPEZ. She stated she will call once a bed comes available. Patient restful with call light in reach. Addendum: 09/17/24 at 1234 by DEBRA LUGO RN RN Correction of time : TR band removed at 12:25 pm without issue.
--- NOTE | 2024-09-17 13:03 | NUR ---
Patient remains stable without complaint. VS wnl. Right Radial site without bleeding, bruising or hematoma. Remains secure on pillow. Called , Maria Luisa and left VM of room change. Reported off in full to receiving Nurse, Sera ESCOBAR
--- NOTE | 2024-09-17 13:20 | NUR ---
Informed receiving PCCU NurseGenevieve RN of few PVC's in transit to room 220. Nurse stated she would get his Telepack on him. No clinical change in Patient status evident. at bedside. Call light in reach.
[2024-09-17] MEDS: doCUSate SODIUM 100 MG CAP PO SCH (20:27)
[2024-09-17] MEDS: APIXaban 5 MG TABLET PO SCH (20:27)
[2024-09-17] MEDS: atorVAStatin 40 MG TABLET PO SCH (20:27)
[2024-09-17] MEDS: trAZOdone HCL 50 MG TAB PO SCH (20:27)
[2024-09-17] MEDS: ASPIRIN 81MG CHEW TAB PO SCH (20:28)
[2024-09-17] MEDS ORDERED: metoPROLOL tartRATE 25 MG TAB PO SCH (21:00)
[2024-09-17] MEDS ORDERED: isoSORbide DInitRATE 10MG TAB PO SCH (21:00)
[2024-09-17] MEDS ORDERED: SACUBITRIL/VALSARTAN 1 EACH TABLET PO SCH (21:00)
[2024-09-18 04:14] VITALS: BP 103/53; PULSE 64; RESP 18; TEMP 98.4
[2024-09-18 05:20] LABS: BASOPHILS # (AUTO) 0.04 K/uL (0.00-0.20); BASOPHILS % (AUTO) 0.5 % (0.0-5.0); EOSINOPHILS # (AUTO) 0.29 K/uL (0.00-0.70); EOSINOPHILS % (AUTO) 3.5 % (0.0-8.0); HEMATOCRIT 34.6 % (42-54); IMMATURE GRANULOCYTE ABSOLUTE 0.04 K/uL (0-1); LYMPHOCYTES # (AUTO) 0.9 K/uL (1.0-4.8); LYMPHOCYTES % (AUTO) 10.6 % (21.0-51.0); MEAN CORPUSCULAR HGB CONC 31.2 g/dL (32.0-36.0); MEAN CORPUSCULAR VOLUME 89.6 fL (79-99); MONOCYTES # (AUTO) 0.9 K/uL (0.1-1.0); MONOCYTES % (AUTO) 10.7 % (3.0-13.0); NEUTROPHILS # (AUTO) 6.1 K/uL (1.8-7.7); NEUTROPHILS % (AUTO) 74.2 % (40.0-77.0); PLATELET COUNT (AUTO) 146 K/uL (130-400); RED BLOOD CELL COUNT(AUTO) 3.86 MIL/uL (4.50-6.20); RED CELL DISTRIBUTION WIDTH 14.6 % (11.0-15.5); WHITE BLOOD COUNT (AUTO) 8.2 K/uL (4.8-10.8)
[2024-09-18 05:29] LABS: CREATININE 1.2 mg/dL (0.5-1.3); POTASSIUM 3.9 mmol/L (3.5-5.1)
[2024-09-18 07:00] VITALS: BP 90/52; PULSE 60; RESP 17; TEMP 98.7
[2024-09-18 08:17] VITALS: O2SAT 95
[2024-09-18] MEDS: cloPIDOgrel 75MG TAB PO SCH (09:05)
--- NOTE | 2024-09-18 09:34 | PN ---
[facility] PROGRESS NOTE Date of Service: September 18, 2024 Time of Service: 09:29 SUBJECTIVE: 79-year-old male with past medical history of hypertension, hyperlipidemia, history of CHF, CAD status post CABG who presented to the hospital secondary to unstable angina. Patient was evaluated by Cardiology as outpatient and was recommended cardiac catheterization. Patient presented to the hospital for elective heart catheterization. Patient underwent left heart catheterization by Dr. Rhodes 09/17/24. He underwent lithotripsy angioplasty to mid left anterior descending artery with balloon, angioplasty and stent placement to mid LAD. Patient has history of CKD and was recommended to be monitored overnight in the hospital and was recommended to be admitted. Patient was seen postprocedure denied chest pain, shortness of breath, abdominal pain, nausea, vomiting, fever, chills. Patient's family is present bedside Patient's chest x-ray is clear. Patient has a pacemaker present. 09/18 the patient admitted to the PCU, blood pressure today 90/52, afebrile, saturating normal on room air. Sodium 141, potassium 3.9, BUN of 23, creatinine 1.2. Echocardiogram done 05/22/2024, LVEF 40-45%, stage II diastolic dysfunction, severe inferior and posterior wall hypokinesis, right ventricle is mildly dilated, right ventricular systolic function is mildly reduced. Patient on aspirin 81 mg p.o. daily, Plavix 75 mg p.o. daily, Eliquis 5 mg p.o. b.i.d..Hemoglobin 10.8, hematocrit 34.6, WBC 8.2, platelet count of 146. We will order iron level, stool occult blood. REVIEW OF SYSTEMS CONSTITUTIONAL: Denies fevers, chills, or night sweats. No unintentional weight loss reported. NEUROLOGICAL: Denies headache, amaurosis fugax, motor weakness, sensory deficit, vertigo/spinning sensation, gait abnormalities, or tremors. ENT: No hearing loss, otalgia, otorrhea, rhinitis, rhinorrhea, hoarseness, or sore throat. CARDIOVASCULAR: Denies any exertional angina, dyspnea on exertion, orthopnea, paroxysmal nocturnal dyspnea, palpitations, life-threatening arrhythmias, claudication. PULMONARY: Denies any shortness of breath, cough, phlegm/sputum, hemoptysis, pl euritic chest pain. GASTROINTESTINAL: Denies any type of dysphagia to either liquids or solids. Denies nausea, vomiting, pyrosis, early satiety, abdominal pain, diarrhea, constipation, or changes in stool consistency or caliber. Denies coffee-ground emesis, hematemesis, hematochezia, or melanotic stools. GENITOURINARY: Denies frequency, urgency, nocturia, hematuria or incontinence (Storage/Irritative symptoms.) Low urinary stream, straining to void, urinary intermittency or hesitancy, splitting of the voiding stream, terminal dribbling. ENDOCRINOLOGIC: Denies polyuria, polydipsia, polyphagia or heat/cold intolerances. HEMATOLOGIC: Denies thrombophilia/previous clots, or coagulopathy/bleeding disorders. ONCOLOGIC: Denies personal history of malignancy. DERMATOLOGIC: Denies rashes or pruritus. PSYCHIATRIC: Denies any suicidal or homicidal ideation. Denies hallucinations. PHYSICAL EXAM GENERAL APPEARANCE: The patient is awake, alert, and oriented, in no acute cardiopulmonary distress. NEUROLOGICAL: Cranial nerves II-XII grossly intact. Motor is 5/5 in bilateral upper and lower extremities proximal to distal. No sensory deficits. HEENT: Face is symmetric. Pupils are equal and reactive. Extraocular movements are intact. NECK: Supple. No JVD. No thyromegaly. No submental, submandibular, pre- /postauricular, occipital or supraclavicular lymphadenopathy. CHEST: Normal chest expansion. No Telemetry. LUNGS: Absence of any rales, rhonchi or any wheezing. CARDIOVASCULAR: Regular. S1 and S2 normal. No appreciable rubs, murmurs or gallops. ABDOMEN: Soft, nontender, and nondistended. There is no rebound, voluntary guarding, or rigidity. : Deferred. No Cooper. EXTREMITIES: Non-edematous and not cyanotic. No clubbing. Good capillary refill. SKIN: No skin breakdown. Vital Signs (last 8hr) Date Time Temp Pulse Resp B/P (MAP) Pulse Ox O2 Delivery O2 Flow Rate FiO2 09/18/24 08:17 95 Room Air* 0 21 09/18/24 07:00 98.8 60 17 90/52 94 Room Air 09/18/24 04:14 98.4 64 18 103/53 93 Nasal Cannula LABS: Laboratory: Test 09/18/24 04:21 Range/Units White Blood Count 8.2 4.8-10.8 K/uL Red Blood Count 3.86 L 4.50-6.20 MIL/uL Hemoglobin 10.8 L 14.0-18.0 g/dL Hematocrit 34.6 L 42-54 % Mean Corpuscular Volume 89.6 79-99 fL Mean Corpuscular Hemoglobin 28.0 27.0-33.0 pg Mean Corpuscular Hemoglobin Concent 31.2 L 32.0-36.0 g/dL Red Cell Distribution Width 14.6 11.0-15.5 % Platelet Count 146 130-400 K/uL Mean Platelet Volume 11.1 H 7.5-10.5 fL Immature Granulocyte % (Auto) 0.5 0-1 % Neutrophils (%) (Auto) 74.2 40.0-77.0 % Lymphocytes (%) (Auto) 10.6 L 21.0-51.0 % Monocytes (%) (Auto) 10.7 3.0-13.0 % Eosinophils (%) (Auto) 3.5 0.0-8.0 % Basophils (%) (Auto) 0.5 0.0-5.0 % Neutrophils # (Auto) 6.1 1.8-7.7 K/uL Lymphocytes # (Auto) 0.9 L 1.0-4.8 K/uL Monocytes # (Auto) 0.9 0.1-1.0 K/uL Eosinophils # (Auto) 0.29 0.00-0.70 K/uL Basophils # (Auto) 0.04 0.00-0.20 K/uL Absolute Immature Granulocyte (auto 0.04 0-1 K/uL Nucleated Red Blood Cells 0.0 0.0-0.19 % Sodium Level 141 136-145 mmol/L Potassium Level 3.9 3.5-5.1 mmol/L Chloride Level 108 101-111 mmol/L Carbon Dioxide Level 27 21-32 mmol/L Blood Urea Nitrogen 23 H 7-18 mg/dL Creatinine 1.2 0.5-1.3 mg/dL Glomerular Filtration Rate Calc 61 >90 mL/min Random Glucose 89 70-105 mg/dL Total Calcium 8.2 L 8.5-10.1 mg/dL Current Medications Medications (Trade) Dose Ordered Sig/Jolynn Route PRN Reason Start Time Stop Time Status Last Admin Dose Admin Apixaban (EliquIS) 5 mg BID PO 09/17/24 21:00 10/17/24 20:59 09/18/24 09:05 5 MG Aspirin (Aspirin 81mg Chew Tab) 81 mg HS PO 09/17/24 21:00 10/17/24 20:59 09/17/24 20:28 81 MG Atorvastatin Calcium (LIPItor 40MG) 80 mg HS PO 09/17/24 21:00 10/17/24 20:59 09/17/24 20:27 80 MG Clopidogrel Bisulfate (plaVIX 75MG) 75 mg DAILY PO 09/18/24 09:00 10/18/24 08:59 09/18/24 09:05 75 MG Dextrose (D50w) 50 ml AD PRN IV HYPOGLYCEMIA PROTOCOL 09/17/24 09:30 10/17/24 09:29 Docusate Sodium (COLace 100MG CAP) 100 mg HS PO 09/17/24 21:00 10/17/24 20:59 09/17/24 20:27 100 MG Glucagon (Glucagon 1mg Kit) 1 mg AD PRN IM HYPOGLYCEMIA PROTOCOL 09/17/24 09:30 10/17/24 09:29 Isosorbide Dinitrate (isorDIL 10MG) 30 mg HS PO 09/17/24 21:00 10/17/24 20:59 Hold Metoprolol Tartrate (loprESSOR) 12.5 mg HS PO 09/17/24 21:00 10/17/24 20:59 Hold Nitroglycerin (Nitrostat) 0.4 mg AD PRN SL CHEST PAIN 09/17/24 09:30 10/17/24 09:29 Sacubitril/ Valsartan (Entresto 24 Mg-26 Mg Tablet) 1 each BID PO 09/17/24 21:00 10/17/24 20:59 Hold Sodium Chloride 1,000 ml @ 0 mls/hr Q0M IV 09/17/24 06:30 10/17/24 06:29 09/17/24 06:20 20 MLS/HR Sodium Chloride 1,000 ml @ 75 mls/hr [id number] IV 09/17/24 09:30 09/17/24 15:29 DC 09/17/24 18:33 75 MLS/HR Trazodone HCl (DesyREL/OlepTRO) 50 mg HS PO 09/17/24 21:00 10/17/24 20:59 09/17/24 20:27 50 MG DIAGNOSTICS / RADIOLOGY: [ ] ASSESSMENT: Unstable angina status post left heart catheterization with angioplasty to mid anterior descending artery, stent placement to proximal to mid LAD Chronic combined systolic and diastolic CHF on echo 05/22/2024 with a LVEF 40- 45%, stage II diastolic dysfunction CAD status post CABG Hypertension Hyperlipidemia CKD stage 3 CHF History of chronic anticoagulation with Eliquis History of pacemaker placement PLAN: Patient remains admitted to the PCU Continue close monitoring of the patient's BP Patient with a drop in hemoglobin, we will do stool occult blood, iron level, follow CBC transfuse as needed Continue to follow Cardiology input and recommendation Patient currently on aspirin 81 mg p.o. daily, Plavix 75 mg p.o. daily and Eliquis 5 mg p.o. b.i.d. NEURO: Minimize central acting medications as possible. Fall Precautions. Well lighted room through the day and minimize interruptions through the night to prevent acute delirium. PULMONARY: Supplemental 02 as needed BiPAP as necessary, for respiratory distress Titrate Fio2 to keep Spo2 > or = 90% DuoNebs and CPT as needed IS hourly while awake for pulmonary hygiene prn Out of bed to chair as tolerated Maintain aspiration precautions at all times CARDIOVASCULAR: Follow hemodynamics. Vital signs per facility protocol GI & NUTRITION: Continue nutritional support Aspirations precautions Prokinetic agents and laxatives as needed KIDNEYS & ELECTROLYTES: Strict monitoring of intake and output Daily weights Avoid nephrotoxic agents Monitor electrolytes and replace as needed Goal urine output of 30mL/hr or 0.5mL/kg/hr Medications to be dosed according to renal function. Avoid contrast if possible ENDOCRINE: Maintain blood glucose between 100-180 at all times. Insulin sliding scale for blood glucose management Hypoglycemia and hyperglycemia protocol in place INFECTIOUS DISEASE: Trend temperature, WBC and procalcitonin level Follow cultures, deescalate antibiotics as soon as possible. Panculture if new onset fever HEMATOLOGY & COAGULATION: Monitor H&H. Keep Hgb > 7 Transfuse 1 unit of PRBC for Hgb < 7 Transfuse 1 pack of platelets of platelets < 20, 000 Watch for any signs and symptoms of bleeding SKIN: Pressure ulcer prevention per facility protocol Specialty mattress as needed ORTHO/REHAB Continue PT/OT PRN: MEDICATIONS Tylenol 650 mg po every 4 hrs for fever zofran 4 mg IV every 6 hrs for n/v Hydralazine 5 mg IV every 4 hrs systolic pressure > 160 bowel regiment: lactulose 20 gm PO BID PRN constipation Supportive measures: Continue GI and DVT prophylaxis Disposition: Pending improvement in clinical condition All questions answered time spent: > 35 min DORIAN MCKEON MD September 18, 2024 09:34
[2024-09-18 09:50] LABS: % IRON SATURATION 37.5 % (30-44)
[2024-09-18 11:00] VITALS: BP_SYST 101; BP_SYST 120; BP_DIAS 59; BP_DIAS 70; PULSE 55; RESP 18; TEMP 98.2
--- NOTE | 2024-09-18 11:02 | PN ---
[facility] PROGRESS NOTE Date of Service: September 18, 2024 Time of Service: 11:01 SUBJECTIVE: 79-year-old male with past medical history of hypertension, hyperlipidemia, history of CHF, CAD status post CABG who presented to the hospital secondary to unstable angina. Patient was evaluated by Cardiology as outpatient and was recommended cardiac catheterization. Patient presented to the hospital for elective heart catheterization. Patient underwent left heart catheterization by Dr. Rhodes 09/17/24. He underwent lithotripsy angioplasty to mid left anterior descending artery with balloon, angioplasty and stent placement to mid LAD. Patient has history of CKD and was recommended to be monitored overnight in the hospital and was recommended to be admitted. Patient was seen postprocedure denied chest pain, shortness of breath, abdominal pain, nausea, vomiting, fever, chills. Patient's family is present bedside Patient's chest x-ray is clear. Patient has a pacemaker present. 09/18 the patient admitted to the PCU, blood pressure today 90/52, afebrile, saturating normal on room air. Sodium 141, potassium 3.9, BUN of 23, creatinine 1.2. Echocardiogram done 05/22/2024, LVEF 40-45%, stage II diastolic dysfunction, severe inferior and posterior wall hypokinesis, right ventricle is mildly dilated, right ventricular systolic function is mildly reduced. Patient on aspirin 81 mg p.o. daily, Plavix 75 mg p.o. daily, Eliquis 5 mg p.o. b.i.d..Hemoglobin 10.8, hematocrit 34.6, WBC 8.2, platelet count of 146. We will order iron level, stool occult blood. Patient is seen and examined at bedside, case discussed with the RN, no acute events overnight, per my discussion with the patient he had a p.m. earlier this morning, no blood noted, normal in color. Denies dizziness, no headache, no chest pain, no shortness a breath, he stated that he has been walking around in the room. REVIEW OF SYSTEMS CONSTITUTIONAL: Denies fevers, chills, or night sweats. No unintentional weight loss reported. NEUROLOGICAL: Denies headache, amaurosis fugax, motor weakness, sensory deficit, vertigo/spinning sensation, gait abnormalities, or tremors. ENT: No hearing loss, otalgia, otorrhea, rhinitis, rhinorrhea, hoarseness, or sore throat. CARDIOVASCULAR: Denies any exertional angina, dyspnea on exertion, orthopnea, paroxysmal nocturnal dyspnea, palpitations, life-threatening arrhythmias, claudication. PULMONARY: Denies any shortness of breath, cough, phlegm/sputum, hemoptysis, pleuritic chest pain. GASTROINTESTINAL: Denies any type of dysphagia to either liquids or solids. Denies nausea, vomiting, pyrosis, early satiety, abdominal pain, diarrhea, constipation, or changes in stool consistency or caliber. Denies coffee-ground emesis, hematemesis, hematochezia, or melanotic stools. GENITOURINARY: Denies frequency, urgency, nocturia, hematuria or incontinence (Storage/Irritative symptoms.) Low urinary stream, straining to void, urinary intermittency or hesitancy, splitting of the voiding stream, terminal dribbling. ENDOCRINOLOGIC: Denies polyuria, polydipsia, polyphagia or heat/cold intolerances. HEMATOLOGIC: Denies thrombophilia/previous clots, or coagulopathy/bleeding disorders. ONCOLOGIC: Denies personal history of malignancy. DERMATOLOGIC: Denies rashes or pruritus. PSYCHIATRIC: Denies any suicidal or homicidal ideation. Denies hallucinations. PHYSICAL EXAM GENERAL APPEARANCE: The patient is awake, alert, and oriented, in no acute cardiopulmonary distress. NEUROLOGICAL: Cranial nerves II-XII grossly intact. Motor is 5/5 in bilateral upper and lower extremities proximal to distal. No sensory deficits. HEENT: Face is symmetric. Pupils are equal and reactive. Extraocular movements are intact. NECK: Supple. No JVD. No thyromegaly. No submental, submandibular, pre- /postauricular, occipital or supraclavicular lymphadenopathy. CHEST: Normal chest expansion. No Telemetry. LUNGS: Absence of any rales, rhonchi or any wheezing. CARDIOVASCULAR: Regular. S1 and S2 normal. No appreciable rubs, murmurs or gallops. ABDOMEN: Soft, nontender, and nondistended. There is no rebound, voluntary guarding, or rigidity. : Deferred. No Cooper. EXTREMITIES: Non-edematous and not cyanotic. No clubbing. Good capillary refill. SKIN: No skin breakdown. Vital Signs (last 8hr) Date Time Temp Pulse Resp B/P (MAP) Pulse Ox O2 Delivery O2 Flow Rate FiO2 09/18/24 08:17 95 Room Air* 0 21 09/18/24 07:00 98.8 60 17 90/52 94 Room Air 09/18/24 04:14 98.4 64 18 103/53 93 Nasal Cannula LABS: Laboratory: Test 09/18/24 04:21 Range/Units White Blood Count 8.2 4.8-10.8 K/uL Red Blood Count 3.86 L 4.50-6.20 MIL/uL Hemoglobin 10.8 L 14.0-18.0 g/dL Hematocrit 34.6 L 42-54 % Mean Corpuscular Volume 89.6 79-99 fL Mean Corpuscular Hemoglobin 28.0 27.0-33.0 pg Mean Corpuscular Hemoglobin Concent 31.2 L 32.0-36.0 g/dL Red Cell Distribution Width 14.6 11.0-15.5 % Platelet Count 146 130-400 K/uL Mean Platelet Volume 11.1 H 7.5-10.5 fL Immature Granulocyte % (Auto) 0.5 0-1 % Neutrophils (%) (Auto) 74.2 40.0-77.0 % Lymphocytes (%) (Auto) 10.6 L 21.0-51.0 % Monocytes (%) (Auto) 10.7 3.0-13.0 % Eosinophils (%) (Auto) 3.5 0.0-8.0 % Basophils (%) (Auto) 0.5 0.0-5.0 % Neutrophils # (Auto) 6.1 1.8-7.7 K/uL Lymphocytes # (Auto) 0.9 L 1.0-4.8 K/uL Monocytes # (Auto) 0.9 0.1-1.0 K/uL Eosinophils # (Auto) 0.29 0.00-0.70 K/uL Basophils # (Auto) 0.04 0.00-0.20 K/uL Absolute Immature Granulocyte (auto 0.04 0-1 K/uL Nucleated Red Blood Cells 0.0 0.0-0.19 % Sodium Level 141 136-145 mmol/L Potassium Level 3.9 3.5-5.1 mmol/L Chloride Level 108 101-111 mmol/L Carbon Dioxide Level 27 21-32 mmol/L Blood Urea Nitrogen 23 H 7-18 mg/dL Creatinine 1.2 0.5-1.3 mg/dL Glomerular Filtration Rate Calc 61 >90 mL/min Random Glucose 89 70-105 mg/dL Total Calcium 8.2 L 8.5-10.1 mg/dL Iron Level 110 65-175 mcg/dL Total Iron Binding Capacity 293 250-450 mcg/dL Percent Iron Saturation 37.5 30-44 % Current Medications Medications (Trade) Dose Ordered Sig/Jolynn Route PRN Reason Start Time Stop Time Status Last Admin Dose Admin Apixaban (EliquIS) 5 mg BID PO 09/17/24 21:00 10/17/24 20:59 09/18/24 09:05 5 MG Aspirin (Aspirin 81mg Chew Tab) 81 mg HS PO 09/17/24 21:00 10/17/24 20:59 09/17/24 20:28 81 MG Atorvastatin Calcium (LIPItor 40MG) 80 mg HS PO 09/17/24 21:00 10/17/24 20:59 09/17/24 20:27 80 MG Clopidogrel Bisulfate (plaVIX 75MG) 75 mg DAILY PO 09/18/24 09:00 10/18/24 08:59 09/18/24 09:05 75 MG Dextrose (D50w) 50 ml AD PRN IV HYPOGLYCEMIA PROTOCOL 09/17/24 09:30 10/17/24 09:29 Docusate Sodium (COLace 100MG CAP) 100 mg HS PO 09/17/24 21:00 10/17/24 20:59 09/17/24 20:27 100 MG Glucagon (Glucagon 1mg Kit) 1 mg AD PRN IM HYPOGLYCEMIA PROTOCOL 09/17/24 09:30 10/17/24 09:29 Isosorbide Dinitrate (isorDIL 10MG) 30 mg HS PO 09/17/24 21:00 10/17/24 20:59 Hold Metoprolol Tartrate (loprESSOR) 12.5 mg HS PO 09/17/24 21:00 10/17/24 20:59 Hold Nitroglycerin (Nitrostat) 0.4 mg AD PRN SL CHEST PAIN 09/17/24 09:30 10/17/24 09:29 Sacubitril/ Valsartan (Entresto 24 Mg-26 Mg Tablet) 1 each BID PO 09/17/24 21:00 10/17/24 20:59 Hold Sodium Chloride 1,000 ml @ 0 mls/hr Q0M IV 09/17/24 06:30 10/17/24 06:29 09/17/24 06:20 20 MLS/HR Sodium Chloride 1,000 ml @ 75 mls/hr [id number] IV 09/17/24 09:30 09/17/24 15:29 DC 09/17/24 18:33 75 MLS/HR Trazodone HCl (DesyREL/OlepTRO) 50 mg HS PO 09/17/24 21:00 10/17/24 20:59 09/17/24 20:27 50 MG DIAGNOSTICS / RADIOLOGY: [ ] ASSESSMENT: Unstable angina status post left heart catheterization with angioplasty to mid anterior descending artery, stent placement to proximal to mid LAD Chronic combined systolic and diastolic CHF on echo 05/22/2024 with a LVEF 40- 45%, stage II diastolic dysfunction CAD status post CABG Hypertension Hyperlipidemia CKD stage 3 CHF History of chronic anticoagulation with Eliquis History of pacemaker placement PLAN: Patient remains admitted to the PCU Continue close monitoring of the patient's BP Patient with a drop in hemoglobin, we will do stool occult blood, iron level, follow CBC transfuse as needed Continue to follow Cardiology input and recommendation Patient currently on aspirin 81 mg p.o. daily, Plavix 75 mg p.o. daily and Eliquis 5 mg p.o. b.i.d. Possible discharge home today if cleared by [employer]er [employer] form and repeat CBC stable as the patient would like to be discharged home today. NEURO: Minimize central acting medications as possible. Fall Precautions. Well lighted room through the day and minimize interruptions through the night to prevent acute delirium. PULMONARY: Supplemental 02 as needed BiPAP as necessary, for respiratory distress Titrate Fio2 to keep Spo2 > or = 90% DuoNebs and CPT as needed IS hourly while awake for pulmonary hygiene prn Out of bed to chair as tolerated Maintain aspiration precautions at all times CARDIOVASCULAR: Follow hemodynamics. Vital signs per facility protocol GI & NUTRITION: Continue nutritional support Aspirations precautions Prokinetic agents and laxatives as needed KIDNEYS & ELECTROLYTES: Strict monitoring of intake and output Daily weights Avoid nephrotoxic agents Monitor electrolytes and replace as needed Goal urine output of 30mL/hr or 0.5mL/kg/hr Medications to be dosed according to renal function. Avoid contrast if possible ENDOCRINE: Maintain blood glucose between 100-180 at all times. Insulin sliding scale for blood glucose management Hypoglycemia and hyperglycemia protocol in place INFECTIOUS DISEASE: Trend temperature, WBC and procalcitonin level Follow cultures, deescalate antibiotics as soon as possible. Panculture if new onset fever HEMATOLOGY & COAGULATION: Monitor H&H. Keep Hgb > 7 Transfuse 1 unit of PRBC for Hgb < 7 Transfuse 1 pack of platelets of platelets < 20, 000 Watch for any signs and symptoms of bleeding SKIN: Pressure ulcer prevention per facility protocol Specialty mattress as needed ORTHO/REHAB Continue PT/OT PRN: MEDICATIONS Tylenol 650 mg po every 4 hrs for fever zofran 4 mg IV every 6 hrs for n/v Hydralazine 5 mg IV every 4 hrs systolic pressure > 160 bowel regiment: lactulose 20 gm PO BID PRN constipation Supportive measures: Continue GI and DVT prophylaxis Disposition: Pending improvement in clinical condition All questions answered time spent: > 35 min DORIAN MCKEON MD September 18, 2024 11:02
[2024-09-18] MEDS ORDERED: CLOP-31 PO (11:04)
[2024-09-18] MEDS ORDERED: NITR0.4T50 SL (11:04)
--- NOTE | 2024-09-18 11:55 | PN ---
This is an 79-year-old male with a history of coronary artery disease with a history of NM in 1987 followed by CABG in 1992, with redo single-vessel CABG with concomitant aortic valve replacement and mitral valve replacement 11/15/2020 1, history of atrial fibrillation/atrial flutter, ischemic cardiomyopathy, status post dual-chamber ICD implant with generator change out 10/23/2022, abdominal aortic aneurysm status post repair, hypertension hyperlipidemia. He was admitted for elective left heart catheterization 09/17/2024 due to current angina. He was found to have 80-90% stenosis of the LAD noted at the diagonal branch status post lithotripsy angioplasty to the mid LAD and PTCA/PCI to the proximal to mid LAD via the right radial artery. Yesterday he was found to be in atrial fibrillation with normal ventricular response and converted to sinus rhythm at 9:38 p.m.. He is currently in sinus rhythm with heart rates in the 60s. His most recent blood pressure is 101/59. White blood count 8.2, hemoglobin 10.8, hematocrit 34.6, platelets 146, creatinine 1.2, potassium 3.9, total iron 110, TIBC 293, iron saturation 37.5. He offers no new cardiac complaints this morning. On exam, he is in no acute distress, regular rate and rhythm, lungs are clear to auscultation bilaterally, no lower extremity edema is noted. There was no evidence of hematoma to the right radial artery. He has good capillary refill. Assessment: 1. Recurrent angina. 2. Status post lithotripsy angioplasty and percutaneous coronary intervention to the proximal to mid LAD 09/17/2024. 3. History of premature coronary artery disease status post CABG in 1992 with redo single-vessel CABG in concomitant aortic valve replacement and mitral valve replacement in October 2020. 4. Paroxysmal atrial fibrillation. 5. Status post dual-chamber ICD. Plan: 1. He reported recurrent anginal symptoms and underwent percutaneous coronary intervention to the proximal to mid LAD 09/17/2024. He is doing well and offers up no new cardiac complaints this morning. 2. He will continue triple therapy with Eliquis 5 mg twice daily, aspirin 81 mg and clopidogrel 75 mg x 30 days, then discontinue aspirin and continue Eliquis and clopidogrel. 3. Otherwise continue rosuvastatin 40 mg once daily, Entresto 24-26 mg twice daily, metoprolol tartrate 12.5 mg once daily and isosorbide mononitrate 30 mg once daily. 4. He is cleared to be discharged home from a cardiology standpoint. Follow- up with Dr. Rhodes/Jesus POTTS as scheduled 09/22/2024. Vitals/Labs Vital Signs Date Time Temp Pulse Resp B/P (MAP) Pulse Ox O2 Delivery O2 Flow Rate FiO2 09/18/24 08:17 95 Room Air* 0 21 09/18/24 07:00 98.8 60 17 90/52 Laboratory Tests 09/18/24 04:21 ROMEO PARSONS September 18, 2024 11:55
--- NOTE | 2024-09-19 09:15 | DS ---
Discharge Summary Hospital Course Summary: 79-year-old male with past medical history of hypertension, hyperlipidemia, history of CHF, CAD status post CABG who presented to the hospital secondary to unstable angina. Patient was evaluated by Cardiology as outpatient and was recommended cardiac catheterization. Patient presented to the hospital for elective heart catheterization. Patient underwent left heart catheterization by Dr. Rhodes 09/17/24. He underwent lithotripsy angioplasty to mid left anterior descending artery with balloon, angioplasty and stent placement to mid LAD. Patient has history of CKD and was recommended to be monitored overnight in the hospital and was recommended to be admitted. Patient was seen postprocedure denied chest pain, shortness of breath, abdominal pain, nausea, vomiting, fever, chills. Patient's family is present bedside Patient's chest x-ray is clear. Patient has a pacemaker present. 09/18 the patient admitted to the PCU, blood pressure today 90/52, afebrile, saturating normal on room air. Sodium 141, potassium 3.9, BUN of 23, creatinine 1.2. Echocardiogram done 05/22/2024, LVEF 40-45%, stage II diastolic dysfunction, severe inferior and posterior wall hypokinesis, right ventricle is mildly dilated, right ventricular systolic function is mildly reduced. Patient on aspirin 81 mg p.o. daily, Plavix 75 mg p.o. daily, Eliquis 5 mg p.o. b.i.d..Hemoglobin 10.8, hematocrit 34.6, WBC 8.2, platelet count of 146. We will order iron level, stool occult blood. Patient is seen and examined at bedside, case discussed with the RN, no acute events overnight, per my di scussion with the patient he had a p.m. earlier this morning, no blood noted, normal in color. The patient Denies dizziness, no headache, no chest pain, no shortness a breath, he stated that he has been walking around in the room. He would like to be d ischarged home. PHYSICAL EXAM GENERAL APPEARANCE: The patient is awake, alert, and oriented, in no acute cardiopulmonary distress. NEUROLOGICAL: Cranial nerves II-XII grossly intact. Motor is 5/5 in bilateral upper and lower extremities proximal to distal. No sensory deficits. HEENT: Face is symmetric. Pupils are equal and reactive. Extraocular movements are intact. NECK: Supple. No JVD. No thyromegaly. No submental, submandibular, pre- /postauricular, occipital or supraclavicular lymphadenopathy. CHEST: Normal chest expansion. No Telemetry. LUNGS: Absence of any rales, rhonchi or any wheezing. CARDIOVASCULAR: Regular. S1 and S2 normal. No appreciable rubs, murmurs or gallops. ABDOMEN: Soft, nontender, and nondistended. There is no rebound, voluntary guarding, or rigidity. : Deferred. No Cooper. EXTREMITIES: Non-edematous and not cyanotic. No clubbing. Good capillary refill. SKIN: No skin breakdown. 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 Right radial arterial sheath placement 6 [place]. 2. Selective coronary angiogram. 3. Selective right internal mammary arteriogram 4. Conscious sedation 5. Lithotripsy angioplasty to mid left anterior descending artery with the use of a 3 mm x 12 mm lithotripsy balloon 6. Angioplasty and stent placement to proximal to mid LAD with the use of a 3 mm x 34 mm resolute erick stent deployed to 3.10 mm INDICATION: Unstable angina DESCRIPTION OF PROCEDURE: The patient was brought to the catheterization suite and prepped and draped in sterile fashion. IV was started, and not already in place and both groins were exposed for arterial access. Right radial artery was also exposed for access. Ultrasound was used to isolate radial artery and then 1% lidocaine was used for local anesthesia and then a micropuncture kit was used to gain access once free-flowing blood was seen, modified Seldinger technique was utilized to place a 6 [place] sheath into the right radial artery. Next, preformed a TIG catheters were used to selectively engage the [place] LEFT CORONARY ARTERY and multiple hand contrast injections were performed in different views to define the coronary anatomy. THE RIGHT CORONARY ARTERY WAS KNOWN TO BE OCCLUDED FROM PRIOR STUDIES. FINDINGS: The left main artery bifurcates into the LAD and left circumflex and is free of any significant stenosis. The left anterior descending artery gives rise to a septal covering and lining supervisor 1 and a diagonal branch vessel that is in its mid section. At diagonal branch vessel there is a 80-90% stenosis noted in the calcified LAD. The remaining LAD is tortuous free of stenosis. Diagonal branch system is free of any significant stenosis. The left circumflex artery is a nondominant system giving rise to a small obtuse marginal branch 1. Followed by large obtuse marginal branch 2 and 3 which bifurcate distally. The right coronary artery was not engaged in his known to be occluded in its proximal mid section Could not isolate her locate graft presumably that went to RCA INTERVENTIONAL REPORT: After diagnostic angiography was performed it was felt intervention should be done to mid LAD and therefore the short 6 [place] sheath was replaced with a 75 cm are 2p6 [place] sheath which was parked into the aorta. Initially a Q3.5 guide catheter was attempted to gain access into the left main artery and engaged it but was unsuccessful and I then went in with a JL 3.56 [place] guide catheter and then a choice PT extra-support 0.014 in wire was then placed in the distal ongoing LAD under fluoroscopic guidance. Next a GuideLiner was used for support to get the 3 mm x 12 mm lithotripsy balloon into the mid LAD and a total of 3 treatments were done at [address]s suggested significant obstruction of flow and possible dissection and as we are pulling the lithotripsy balloon out secondary to significant tortuosity from radial artery access the choice PT extra-support wire was brought back to the guide. Contrast injection still revealed adequate flow and we then got a 2nd choice PT extra- support wire and I was able to place that in the distal apical LAD under flu oroscopic guidance. Next a 3 mm x 20 mm semi compliant balloon was then used to dilate that region of the proximal mid LAD. Next a 3 mm x 34 mm resolute erick stent was then placed in the proximal to mid LAD and deployed to 3.10 mm. Follow up contrast injection revealed no evidence of dissection or perforation with DILEEP 3 flow noted. There was no interruption of flow to diagonal branch vessel or septal covering and lining supervisor. At end of case a TR band was used for hemostasis as sheath was pulled. RECOMMENDATIONS: IV fluids overnight Initiate dual antiplatelet therapy concomitantly with anticoagulation for triple therapy for 30 days with a then discontinuation of aspirin and continue with clopidogrel and Eliquis thereafter Place on telemetry overnight Initiate anticoagulation with Eliquis LOGAN Broussard MD September 17, 2024 09:32 Electronically Signed by: LOGAN RHODES MD09/17/24 0932 Electronically Co-Signed by: Assessment/Plan: Final diagnosis Unstable angina status post left heart catheterization with angioplasty to mid anterior descending artery, stent placement to proximal to mid LAD Chronic combined systolic and diastolic CHF on echo 05/22/2024 with a LVEF 40- 45%, stage II diastolic dysfunction CAD status post CABG Hypertension Hyperlipidemia CKD stage 3 CHF History of chronic anticoagulation with Eliquis History of pacemaker placement Discharge Instructions: Patient to be discharged home today, to follow up with 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 The patient was advised to return to hospital if condition changes. Home Medications: Active Scripts Nitroglycerin (Nitroglycerin) 0.4 Mg Tab.subl, 1 TAB SL AD for chest pain, #25 TAB 1 Refill 1st sign of attack; may repeat every 5 mins; if pain persists after 3 in 15 min, medical attention is recommended Prov:DORIAN MCKEON MD 09/18/24 Clopidogrel Bisulfate (Plavix) 75 Mg Tablet, 75 MG PO DAILY for 30 Days, #30 TAB 1 Refill Prov:DORIAN MCKEON MD 09/18/24 Reported Medications Sacubitril/Valsartan (Entresto 24 mg-26 mg Tablet) 24 Mg-26 Mg Tablet, 1 EACH PO BID, TAB 09/08/24 [Hydrocortisone] No Conflict Check, 1 TAB PO AD PRN for PAIN 09/08/24 Apixaban (Eliquis) 5 Mg Tablet, 5 MG PO BID, TAB 09/08/24 [B12] No Conflict Check, 1 TAB PO HS 09/08/24 [Docusate] No Conflict Check, 1 TAB PO HS 09/08/24 [Metoprolol Tart] No Conflict Check, 12.5 MG PO HS 09/08/24 Aspirin (Aspirin) 81 Mg Tab.chew, 81 MG PO HS, TAB.CHEW 11/18/16 Rosuvastatin Calcium (Rosuvastatin Calcium) 40 Mg Tablet, 40 MG PO HS, TAB 11/18/16 Trazodone HCl (Trazodone HCl) 50 Mg Tablet, 50 MG PO HS, TAB 11/18/16 Isosorbide Dinitrate (Isosorbide Dinitrate) 30 Mg Tablet, 30 MG PO HS, TAB 11/18/16 Time spent arranging discharge: 31-60 minutes DORIAN MCKEON MD September 19, 2024 09:15
== END 2024-09-18 12:35 | disposition home or self-care (01) ==
LOC: DAH 05:53 → DAHIP 05:54 → DAH 05:54 → 2DH 13:45
PROVIDERS: ADMIT Internal Medicine; ATTEND Internal Medicine
DX: I25.110 Atherosclerotic heart disease of native coronary artery with unstable angina pectoris (principal); E78.5 Hyperlipidemia, unspecified; I48.0 Paroxysmal atrial fibrillation; I13.0 Hypertensive heart and chronic kidney disease with heart failure and stage 1 through stage 4 chronic kidney disease, or unspecified chronic kidney disease; I50.42 Chronic combined systolic (congestive) and diastolic (congestive) heart failure; N18.30 Chronic kidney disease, stage 3 unspecified; Z95.0 Presence of cardiac pacemaker; Z95.1 Presence of aortocoronary bypass graft; Z95.2 Presence of prosthetic heart valve; Z88.5 Allergy status to narcotic agent; Z79.01 Long term (current) use of anticoagulants
CPT/HCPCS: 80048 ×2; 83880; 85025 ×2; 85610; 85730; 36415 ×2; 71045; 93005; 92972; 93455; 96360; 96361; 83540; 83550; 97161; 97116; 97530 ×2; C1887 ×4; C1769 ×3; C1725 ×2; C1874; C1894; A4649; C1761; Q9965 ×3; G0378 ×26; J3010; J3490 ×3; J1644 ×2; J2250; J2270; J0583; J1265; Q9967 ×2; A4215; A4222; A4223 ×2; A6260; A4221; A4663; A4216; A6258; A4606; C9600; 99156; 99157